=== PATIENT | male | born 1970 | race Caucasian/White ===

== ENCOUNTER → 2016-05-27 | Outpatient (CLI) | payer OTHER ==
[~2016-05-27] MED LIST: IBUPROFEN PO; LIALDA PO; LIALDA1.2 G PO; MULTIPLE VITAMI1 T11 PO
--- NOTE | ~2016-05-27 | MR151 ---
[facility] A Service of [facility] & [facility] RADIOLOGY TEXT RESULTS PATIENT: PROSPER PEDERSON LOCATION: [facility] : [birth year] UNIT #: [id number] AGE: [address]: Patrice Cowan MD SEX: M ORDER DR: [id number] [address] [address] [id number] MR#: [id number] Acc #: [id number] NAME: PROSPER PEDERSON : 1970 SEX: M STUDY DATE/TIME: 05/27/2016 11:00 UNIT: [facility] ROOM: STUDY DESCRIPTION: MR Pelvis WWo Contrast Attending Physician: Patrice Cowan M.D. Referring Physician: Patrice Cowan M.D. Ordering Physician: Patrice Cowan M.D. Primary Care Physician: No Primary Care Physician MRI CENTER REPORT This report is preliminary unless electronic signature is present. EXAM MRI pelvis, sacrum/coccyx, and proximal thighs without and with IV contrast. DATE OF EXAMINATION 05/26/2016 and 05/27/2016 HISTORY Order states postoperative seroma. Right thigh pain. Coccygeal pain. History of forklift injury. History sheet states bilateral hip and femur pain since forklift injury April 2015. Pain most consistently of the left iliac crest and tailbone. Several surgeries to drain fluid the pelvis. Seroma drained on June 2015 and August 2015. COMPARISON Office notes [facility] 04/27/2016, bilateral hip radiographs 04/27/2016, sacrum and coccyx radiographs 02/12/2016, MRIs of the thigh and pelvis 09/10/2015, CT pelvis 06/28/2015. FINDINGS The exam was prospectively discussed with Dr. Patrice Cowan and 1 exam can be performed to address the clinical questions. The exam was performed on two dates (05/26/2016 and 05/27/2016). There has been significant improvement in the right buttock fluid collection which could have represented a hematoma, seroma, and/or Martin-Casey lesion. There is a tiny minimal residual fluid collection along the lateral aspect of the right gluteus kaveh-subcutaneous space junction at the level of the greater trochanter. It measures 3.6 cm in transverse dimension by 8 mm in AP dimension. It is surrounded by low signal linear scar and/or enhancing granulation tissue. The slightly displaced lower coccygeal segment noted on the radiograph of [facility] A Service of [facility] RADIOLOGY TEXT RESULTS PATIENT: PROSPER PEDESRON LOCATION: [facility] : [birth year] UNIT #: [id number] AGE: [address]: Patrice Cowan MD SEX: M ORDER DR: 02/12/2016 has a normal appearance by MRI with no abnormal signal or displacement. There is no sacrococcygeal edema or definite fracture identified. The SI joints are normal. There is [id number] left hip arthrosis with joint space narrowing, minimal effusion, superolateral subarticular acetabular marrow edema with a small cyst and mild enhancing synovitis. Superior joint space narrowing and osteophyte formation are noted. The right hip demonstrates minimal arthritic changes with no evidence of synovitis, effusion, or avascular necrosis. Small paralabral cyst on the right along the lateral acetabular rim are possible. The remainder of the bony pelvis, sacrum, and SI joints are normal. No marrow lesion or fracture is identified. Gluteal tendons are intact. No internal pelvic pathology is noted. Pubic symphysis is unremarkable. The visualized proximal thighs are unremarkable. IMPRESSION 1. Significantly improved soft tissue injury and fluid collection in the right buttock involving the deep subcutaneous space and superficial gluteus kaveh muscle when compared to the MRI of 09/10/2015. There is a thin minimal residual fluid collection with surrounding fibrosis and enhancing granulation tissue. 2. Left hip mild arthrosis with moderate enhancing synovitis. 3. Minimal right hip arthrosis without synovitis. 4. The sacrum and coccyx have a normal appearance on the today's MRI. There is no displacement of the lower coccygeal segment or visualized fracture or marrow edema. The cause of the radiographic finding of 02/12/2016 is unclear. Sacrum, SI joints, and coccyx are otherwise unremarkable. 5. No additional musculoskeletal abnormality. No internal pelvic pathology noted. Dictated by... Helen George M.D. THIS IS AN ELECTRONICALLY VERIFIED REPORT Helen George M.D. at 05/31/2016 8:50 AM [facility] A Service of [facility] & [facility] RADIOLOGY TEXT RESULTS PATIENT: PROSPER PEDERSON LOCATION: [facility] : [birth year] UNIT #: [id number] AGE: [address]: Patrice Cowan MD SEX: M ORDER DR: TD: 05/28/2016 13:36 JOB #: [id number] MRI CENTER REPORT
== END | disposition home or self-care (01) ==
LOC: SMRI 10:44
DX: M79.604 Pain in right leg (principal); M16.12 Unilateral primary osteoarthritis, left hip
CPT/HCPCS: 72197; A9581